=== PATIENT | male | born 1955 | race Caucasian/White ===

== ENCOUNTER 2020-06-26 09:01 | Inpatient (IN) | payer SELFPAY ==
[~2020-06-26] VITALS: Ht 182.9 cm; Wt 89.7 kg
[2020-06-26 09:41] LABS: ALBUMIN 3.8 g/dL (3.4-5.0); ANION GAP 5 mmol/L (5-15); CALCIUM 8.9 mg/dL (8.5-10.1); CHLORIDE 103 mmol/L (98-107)
[2020-06-26 09:46] LABS: ALANINE AMINOTRANSFERASE 55 U/L (12-78); ALKALINE PHOSPHATASE 76 U/L (45-117); BILIRUBIN,TOTAL 0.8 mg/dL (0.2-1.0); CREATININE 0.83 mg/dL (0.7-1.3); TOTAL PROTEIN 7.1 g/dL (6.4-8.2); TROPONIN I < 0.015 ng/mL (0.000-0.045)
[2020-06-26 10:09] LABS: BASOPHILS % (AUTO) 1 % (0-1); EOSINOPHILS % (AUTO) 1 % (1-7); LYMPHOCYTES % (AUTO) 16 % (22-44); MEAN CORPUSCULAR HEMOGLOBIN 39.3 pg (27.5-34.5); MEAN CORPUSCULAR HGB CONC 35.7 g/dL (33.2-36.2); MEAN PLATELET VOLUME 8.7 fL (7.4-10.4); MONOCYTES % (AUTO) 11 % (2-9); NEUTROPHILS % (AUTO) 71 % (42-75); PLATELET COUNT 138 x10^3/uL (130-400); RED BLOOD COUNT 4.57 x10^6/uL (4.38-5.82); RED CELL DISTRIBUTION WIDTH 12.9 % (9.4-14.8)
[2020-06-26 10:11] LABS: <PLATELET ESTIMATE> ADEQUATE; <PLT MORPHOLOGY> NORMAL PLT MORPH; MD MORPH REVIEW ONLY
[2020-06-26] MEDS ORDERED: THIAMINE 200 MG in SODIUM CHLORIDE 0.9% 50 ML IV ONE (11:00)
[2020-06-26] MEDS ORDERED: MEDROL 4MG DOSEPAK PO SCH (11:30)
[2020-06-26] MEDS ORDERED: hydrALAzine 20 MG/ML, 1ML IVPush PRN (11:30)
[2020-06-26] MEDS ORDERED: ACETAMINOPHEN 325 MG TABLET PO PRN (11:30)
[2020-06-26] MEDS ORDERED: ONDANSETRON 2MG/ML, 2ML IVPush PRN (11:30)
[2020-06-26] MEDS ORDERED: ENALAPRILAT 1.25 MG/ML, 2ML IVPush PRN (11:30)
[2020-06-26] MEDS ORDERED: DOCUSATE 100 MG CAPSULE PO PRN (11:30)
[2020-06-26] MEDS ORDERED: ONDANSETRON ODT 4 MG PO PRN (11:30)
[2020-06-26 11:56] LABS: T4 (THYROXINE) 11.1 mcg/dL (4.5-12.1)
[2020-06-26] MEDS: NICOTINE 21 MG/24 HR PATCH.TD24 TD SCH (12:31)
[2020-06-26 14:00] VITALS: BP 150/96
[2020-06-26] MEDS ORDERED: LORazepam 2 MG/ML, 1ML IVPush ONE (14:00)
[2020-06-26 18:24] VITALS: BP 159/92
[2020-06-26] MEDS: ZOLPIDEM 5MG TABLET PO PRN (21:05)
[2020-06-27 00:25] VITALS: BP 148/86
[2020-06-27 04:49] LABS: BASOPHILS % (AUTO) 1 % (0-1); EOSINOPHILS % (AUTO) 0 % (1-7); LYMPHOCYTES % (AUTO) 12 % (22-44); MD NO; MEAN CORPUSCULAR HEMOGLOBIN 39.9 pg (27.5-34.5); MEAN CORPUSCULAR HGB CONC 36.5 g/dL (33.2-36.2); MEAN PLATELET VOLUME 8.6 fL (7.4-10.4); MONOCYTES % (AUTO) 8 % (2-9); NEUTROPHILS % (AUTO) 79 % (42-75); PLATELET COUNT 148 x10^3/uL (130-400); RED BLOOD COUNT 4.39 x10^6/uL (4.38-5.82); RED CELL DISTRIBUTION WIDTH 12.9 % (9.4-14.8)
[2020-06-27 04:58] LABS: ANION GAP 6 mmol/L (5-15); CALCIUM 8.8 mg/dL (8.5-10.1); CHLORIDE 105 mmol/L (98-107); CREATININE 0.77 mg/dL (0.7-1.3)
[2020-06-27 07:13] VITALS: BP 151/94
[2020-06-27] MEDS: CYANOCOBALOMIN 100MCG TABLET PO SCH (08:11)
[2020-06-27] MEDS: THIAMINE 100MG TABLET PO SCH (08:11)
[2020-06-27] MEDS: NICOTINE 21 MG/24 HR PATCH.TD24 TD SCH (08:15)
[2020-06-27 12:23] VITALS: BP 157/94
[2020-06-27] MEDS: LORazepam 1MG TABLET PO PRN ×2 (13:31→20:01)
[2020-06-27 18:23] VITALS: BP 136/89
[2020-06-27] MEDS: ZOLPIDEM 5MG TABLET PO PRN (18:45)
[2020-06-28 00:13] VITALS: BP 152/90
[2020-06-28 07:30] VITALS: BP 144/95
[2020-06-28] MEDS: THIAMINE 100MG TABLET PO SCH (07:51)
[2020-06-28] MEDS: NICOTINE 21 MG/24 HR PATCH.TD24 TD SCH (07:52)
[2020-06-28] MEDS: CYANOCOBALOMIN 100MCG TABLET PO SCH (07:52)
[2020-06-28 08:44] LABS: PROTHROMBIN TIME 10.7 Seconds (9.6-11.5)
[2020-06-28 12:40] VITALS: BP 142/91
[2020-06-28] MEDS: BACLOFEN 10 MG TABLET PO PRN (13:20)
[2020-06-28] MEDS: GABAPENTIN 300 MG CAPSULE PO PRN (15:02)
[2020-06-28] MEDS: LORazepam 1MG TABLET PO PRN (20:22)
[2020-06-28 20:43] VITALS: BP 150/95
[2020-06-28] MEDS: ZOLPIDEM 5MG TABLET PO PRN (22:11)
[2020-06-29] MEDS: D5%-0.45% NACL 1,000 ML IV SCH (00:22)
[2020-06-29 03:28] VITALS: BP 155/85
[2020-06-29] MEDS: NICOTINE 21 MG/24 HR PATCH.TD24 TD SCH (08:02)
[2020-06-29] MEDS: CYANOCOBALOMIN 100MCG TABLET PO SCH (08:03)
[2020-06-29] MEDS: THIAMINE 100MG TABLET PO SCH (08:03)
[2020-06-29] MEDS: BACLOFEN 10 MG TABLET PO PRN (08:05)
[2020-06-29] MEDS: GABAPENTIN 300 MG CAPSULE PO PRN ×3 (08:05→18:00)
[2020-06-29] MEDS ORDERED: ACETAMINOPHEN 325 MG TABLET PO PRN (09:00)
[2020-06-29 09:18] VITALS: BP 156/94
[2020-06-29 13:30] VITALS: BP 166/68
[2020-06-29 13:48] VITALS: BP 162/106
[2020-06-29] MEDS: morphine SULFATE 10 MG/ML, 1ML IVPush PRN ×2 (13:51→17:59)
[2020-06-29 14:30] VITALS: BP 155/82
[2020-06-29] MEDS: CARVEDILOL 6.25 MG TABLET PO SCH (18:00)
[2020-06-29 20:26] VITALS: BP 143/92
[2020-06-29] MEDS: LORazepam 1MG TABLET PO PRN (20:42)
[2020-06-29] MEDS: ZOLPIDEM 5MG TABLET PO PRN (21:48)
[2020-06-30] MEDS: D5%-0.45% NACL 1,000 ML IV SCH (00:15)
[2020-06-30 01:08] VITALS: BP 151/81
[2020-06-30 05:25] VITALS: BP 159/89
[2020-06-30] MEDS: CARVEDILOL 6.25 MG TABLET PO SCH ×2 (05:26→17:32)
[2020-06-30] MEDS ORDERED: EPINEPHRINE 1 MG/ML, 1ML ONE (06:54)
[2020-06-30] MEDS ORDERED: BUPIVACAINE/PF 0.5% ONE (06:54)
[2020-06-30] MEDS ORDERED: THROMBIN 5,000 UNIT VIAL TP ONE (06:54)
[2020-06-30] MEDS: NICOTINE 21 MG/24 HR PATCH.TD24 TD SCH (07:32)
[2020-06-30] MEDS: BACLOFEN 10 MG TABLET PO PRN (07:33)
[2020-06-30] MEDS: GABAPENTIN 300 MG CAPSULE PO PRN ×2 (07:33→14:37)
[2020-06-30] MEDS: CYANOCOBALOMIN 100MCG TABLET PO SCH (07:33)
[2020-06-30] MEDS: THIAMINE 100MG TABLET PO SCH (07:33)
[2020-06-30 07:44] VITALS: BP 145/100
[2020-06-30] MEDS ORDERED: CHLORHEXIDINE 15 ML UDC MM ONE (08:30)
[2020-06-30] MEDS ORDERED: MIDAZOLAM 1 MG/ML, 2ML ONE (09:13)
[2020-06-30] MEDS ORDERED: BACITRACIN 50,000 UNIT ONE (09:13)
[2020-06-30] MEDS ORDERED: FENTANYL PF 250 MCG/5ML ONE ×2 (09:14→10:00)
[2020-06-30] MEDS ORDERED: LIDOCAINE GEL 2%, 5ML ONE (09:17)
[2020-06-30] MEDS ORDERED: PROPOFOL 10 MG/ML, 20ML ONE (09:17)
[2020-06-30] MEDS ORDERED: LIDOCAINE-MPF 2% ,5ML ONE (09:17)
[2020-06-30] MEDS ORDERED: DEXAMETHASONE 4 MG/ML, 1ML ONE ×3 (09:17)
[2020-06-30] MEDS ORDERED: PROPOFOL 50 ML ONE (09:19)
[2020-06-30] MEDS ORDERED: CEFAZOLIN 1,000 MG ONE (09:23)
[2020-06-30] MEDS ORDERED: ROCURONIUM 10MG/ML,5ML ONE (10:29)
[2020-06-30] MEDS ORDERED: ONDANSETRON 2MG/ML, 2ML ONE (11:09)
[2020-06-30] MEDS ORDERED: MIDAZOLAM 1 MG/ML, 2ML IV PRN (11:30)
[2020-06-30] MEDS ORDERED: LABETALOL 5MG/ML, 20ML IV PRN (11:30)
[2020-06-30] MEDS ORDERED: ALBUTEROL SULFATE 2.5 MG/3 ML NPPB PRN (11:30)
[2020-06-30] MEDS ORDERED: METHOCARBAMOL 750 MG TABLET PO PRN (11:30)
[2020-06-30] MEDS ORDERED: METHOCARBAMOL 1,000 MG in DEXTROSE 5% 100 ML IV ONE (11:30)
[2020-06-30] MEDS ORDERED: EPHEDRINE 50 MG/ML, 1ML IVPush PRN (11:30)
[2020-06-30] MEDS ORDERED: HYDROmorphone 1 MG/ML, 1ML INJ IVPush PRN (11:30)
[2020-06-30] MEDS ORDERED: PROMETHAZINE 12.5 MG SUPP PR PRN (11:30)
[2020-06-30] MEDS ORDERED: PROMETHAZINE 25 MG/ML, 1ML IVPush PRN (11:30)
[2020-06-30] MEDS ORDERED: ACETAMINOPHEN 325 MG TABLET PO PRN (11:30)
[2020-06-30] MEDS ORDERED: OXYcodone 5 MG/5 ML ORAL.SOL UDC PO PRN (11:30)
[2020-06-30] MEDS ORDERED: hydrALAzine 20 MG/ML, 1ML IV PRN (11:30)
[2020-06-30] MEDS ORDERED: PHARMACY MAY ADJ FOR RENAL FX MC PRN (11:30)
[2020-06-30] MEDS ORDERED: ONDANSETRON 2MG/ML, 2ML IVPush PRN (11:30)
[2020-06-30] MEDS ORDERED: MEPERIDINE/PF 25MG/0.5ML IVPush PRN (11:30)
[2020-06-30] MEDS ORDERED: DIAZEPAM 5 MG/ML, 2ML IVPush PRN (11:30)
[2020-06-30] MEDS ORDERED: DIPHENHYDRAMINE 50 MG/ML, 1ML IVPush PRN ×2 (11:30)
[2020-06-30] MEDS ORDERED: CEFAZOLIN PMX 1GM/50ML 50 ML IVPB SCH (12:00)
[2020-06-30] MEDS ORDERED: FENTANYL PF 100 MCG/2ML ONE ×2 (12:06→12:33)
[2020-06-30] MEDS: FENTANYL PF 100 MCG/2ML IV PRN ×3 (12:08→12:34)
[2020-06-30] MEDS ORDERED: LABETALOL 5MG/ML, 20ML ONE (12:13)
[2020-06-30] MEDS ORDERED: OXYcodone 5 MG/5 ML ORAL.SOL UDC ONE (12:20)
[2020-06-30 13:05] VITALS: BP 160/99
[2020-06-30] MEDS: morphine SULFATE 10 MG/ML, 1ML IVPush PRN ×3 (14:36→21:19)
[2020-06-30] MEDS: CEFAZOLIN PMX 1GM/50ML 50 ML IVPB SCH (17:25)
[2020-06-30 20:10] VITALS: BP 142/83
[2020-06-30] MEDS: ZOLPIDEM 5MG TABLET PO PRN (21:18)
[2020-07-01 00:23] VITALS: BP 124/74
[2020-07-01] MEDS: BACLOFEN 10 MG TABLET PO PRN ×2 (01:04→22:51)
[2020-07-01] MEDS: D5%-0.45% NACL 1,000 ML IV SCH (01:05)
[2020-07-01] MEDS: CEFAZOLIN PMX 1GM/50ML 50 ML IVPB SCH (01:05)
[2020-07-01] MEDS: morphine SULFATE 10 MG/ML, 1ML IVPush PRN (03:32)
[2020-07-01 03:42] VITALS: BP 119/73
[2020-07-01] MEDS: CARVEDILOL 6.25 MG TABLET PO SCH ×2 (05:54→16:46)
[2020-07-01] MEDS: GABAPENTIN 300 MG CAPSULE PO PRN (05:55)
[2020-07-01] MEDS: NICOTINE 21 MG/24 HR PATCH.TD24 TD SCH (07:29)
[2020-07-01] MEDS: CYANOCOBALOMIN 100MCG TABLET PO SCH (07:29)
[2020-07-01] MEDS: SENNA/DOCUSATE TABLET PO SCH (07:29)
[2020-07-01] MEDS: THIAMINE 100MG TABLET PO SCH (07:29)
[2020-07-01 07:58] VITALS: BP 143/75
[2020-07-01 08:53] LABS: BASOPHILS % (AUTO) 0 % (0-1); EOSINOPHILS % (AUTO) 0 % (1-7); LYMPHOCYTES % (AUTO) 13 % (22-44); MEAN CORPUSCULAR HEMOGLOBIN 39.5 pg (27.5-34.5); MEAN CORPUSCULAR HGB CONC 35.3 g/dL (33.2-36.2); MEAN PLATELET VOLUME 8.5 fL (7.4-10.4); MONOCYTES % (AUTO) 8 % (2-9); NEUTROPHILS % (AUTO) 79 % (42-75); PLATELET COUNT 136 x10^3/uL (130-400); RED BLOOD COUNT 4.27 x10^6/uL (4.38-5.82); RED CELL DISTRIBUTION WIDTH 12.9 % (9.4-14.8)
[2020-07-01 08:59] LABS: MD NO
[2020-07-01 09:04] LABS: ANION GAP 3 mmol/L (5-15); CALCIUM 8.8 mg/dL (8.5-10.1); CHLORIDE 104 mmol/L (98-107); CREATININE 0.74 mg/dL (0.7-1.3)
[2020-07-01] MEDS ORDERED: OXYcodone IR 5MG TABLET PO PRN (10:00)
[2020-07-01] MEDS: DEXAMETHASONE 4 MG/ML, 1ML IVPush SCH ×3 (10:31→22:50)
[2020-07-01 13:41] VITALS: BP 135/80
[2020-07-01 16:22] VITALS: BP 168/83
[2020-07-01 20:14] VITALS: BP 133/73
[2020-07-01] MEDS: FAMOTIDINE 20 MG TABLET PO SCH (21:07)
[2020-07-01] MEDS: ZOLPIDEM 5MG TABLET PO PRN (22:51)
[2020-07-02] MEDS ORDERED: D5%-0.45% NACL 1,000 ML IV SCH
[2020-07-02 01:35] VITALS: BP 165/91
[2020-07-02 03:42] VITALS: BP 130/79
[2020-07-02 05:16] LABS: BASOPHILS % (AUTO) 0 % (0-1); EOSINOPHILS % (AUTO) 0 % (1-7); LYMPHOCYTES % (AUTO) 10 % (22-44); MEAN CORPUSCULAR HEMOGLOBIN 39.9 pg (27.5-34.5); MEAN CORPUSCULAR HGB CONC 36.3 g/dL (33.2-36.2); MEAN PLATELET VOLUME 8.9 fL (7.4-10.4); MONOCYTES % (AUTO) 7 % (2-9); NEUTROPHILS % (AUTO) 83 % (42-75); PLATELET COUNT 128 x10^3/uL (130-400)
[2020-07-02 05:18] LABS: MD NO
[2020-07-02] MEDS: DEXAMETHASONE 4 MG/ML, 1ML IVPush SCH ×2 (05:18→10:46)
[2020-07-02] MEDS: CARVEDILOL 6.25 MG TABLET PO SCH (05:19)
[2020-07-02 07:54] VITALS: BP 126/74
[2020-07-02] MEDS ORDERED: LORazepam 0.5MG TABLET PO PRN (08:00)
[2020-07-02] MEDS: NICOTINE 21 MG/24 HR PATCH.TD24 TD SCH (08:28)
[2020-07-02] MEDS: SENNA/DOCUSATE TABLET PO SCH (08:30)
[2020-07-02] MEDS: FAMOTIDINE 20 MG TABLET PO SCH (08:30)
[2020-07-02] MEDS: THIAMINE 100MG TABLET PO SCH (08:30)
[2020-07-02] MEDS: GABAPENTIN 300 MG CAPSULE PO PRN (08:30)
[2020-07-02] MEDS: CYANOCOBALOMIN 100MCG TABLET PO SCH (08:30)
[2020-07-02] MEDS ORDERED: ACETAMINOPHEN 325 MG TABLET PO SCH (09:00)
[2020-07-02] MEDS ORDERED: SENN-211 PO (10:22)
[2020-07-02] MEDS ORDERED: GABA300C PO (10:22)
[2020-07-02] MEDS ORDERED: ACET325T26 PO (10:22)
[2020-07-02] MEDS ORDERED: THIA100T67 PO (10:22)
[2020-07-02] MEDS ORDERED: NICO-587 TD (10:22)
[2020-07-02] MEDS ORDERED: HYDR-3341 PO (10:22)
[2020-07-02] MEDS ORDERED: CARV6.2512 PO (10:22)
[2020-07-02 11:50] VITALS: BP 164/93
== END 2020-07-02 13:20 | disposition home or self-care (01) | DRG 472 ==
LOC: ED 10:33 → SUATTDRO 10:53 → EDIP 11:10 → 3N 12:03 → 4NE 06-28 18:18
PROVIDERS: ADMIT Hospitalist; ATTEND Internal Medicine
PROC: 0RB30ZZ Excision of Cervical Vertebral Disc, Open Approach (ICD-10-PCS; 2020-06-30)
PROC: 0RG20A0 Fusion of 2 or more Cervical Vertebral Joints with Interbody Fusion Device, Anterior Approach, Anterior Column, Open Approach (ICD-10-PCS; principal; 2020-06-30 09:45)
DX: M50.21 Other cervical disc displacement, high cervical region (principal); E51.2 Wernicke's encephalopathy; E87.1 Hypo-osmolality and hyponatremia; G95.20 Unspecified cord compression; Z20.822 Contact with and (suspected) exposure to COVID-19; D69.6 Thrombocytopenia, unspecified; D75.89 Other specified diseases of blood and blood-forming organs; F10.10 Alcohol abuse, uncomplicated; G47.00 Insomnia, unspecified; G62.9 Polyneuropathy, unspecified; I10 Essential (primary) hypertension; M19.90 Unspecified osteoarthritis, unspecified site; F17.200 Nicotine dependence, unspecified, uncomplicated; J02.9 Acute pharyngitis, unspecified; M48.02 Spinal stenosis, cervical region; Z53.9 Procedure and treatment not carried out, unspecified reason; Z88.5 Allergy status to narcotic agent; Z79.899 Other long term (current) drug therapy; Z79.891 Long term (current) use of opiate analgesic; Z79.01 Long term (current) use of anticoagulants; Z82.49 Family history of ischemic heart disease and other diseases of the circulatory system
CPT/HCPCS: 36415; 72040; 72110; 96374; 96375; 99285; J3490; S0020; 71045; 72141; 72146; 72148; 80048; 80053; 82607; 84436; 84443; 84484; 85025; 85610; 85730; 93005; 95938; 95941; C1713; C1776; G0378; J0171; J0690; J1100; J2250; J2405; J2704; J3010; J3411; J7509; J0360; J2060; J2270; J2800; U0003